=== PATIENT | male | born 1955 | race Caucasian/White ===

== ENCOUNTER 2018-08-29 11:15 | Day surgery (SDC) | payer BC ==
[2018-08-28 09:22] VITALS: BMI 71.7
[2018-08-29] MEDS ORDERED: PROPOFOL 200 MG/20 ML VIAL ONE (11:52)
[2018-08-29] MEDS ORDERED: Lidocaine 1% PF 5 ML VIAL ONE (11:52)
--- NOTE | 2018-08-29 14:09 | OP ---
DATE OF PROCEDURE: 08/29/2018 PROCEDURE PERFORMED: Colonoscopy with polypectomy and control of hemorrhage. INDICATION FOR PROCEDURE: Positive fecal occult blood test, history of colonic polyps, family histor y of colon cancer (father diagnosed at the age of 63). DESCRIPTION OF PROCEDURE: After the risks and benefits of the procedure were explained to the patien t including risks of bleeding, infection, perforation, reactions to anesthesia, aspiration and/or phillip n, informed consent was obtained. The patient was then taken to the endoscopy suite where deep sedat ion was administered via propofol and anesthesia support. Once adequate sedation was achieved, a dig ital rectal examination was performed and then followed by introducing the standard colonoscope into the rectum and advancing to the cecum with only some difficulty due to colonic redundancy. The quali ty of the prep was good. The patient tolerated the procedure well with no immediate perioperative co mplications. After the procedure, the patient was then taken to day stay in satisfactory condition. FINDINGS: Digital rectal exam normal. COLON FINDINGS: Normal appearing mucosa was seen at the appendiceal orifice as well as the ileocecal valve and the cecum. Three colonic polyps measuring 4-12 mm in size were seen in the ascending colo n and completely removed with hot snare polypectomy. They were retrieved and placed in a specimen ja r for evaluation. The largest polyp (12 mm) exhibited mild active oozing of blood afterwards that di d not immediately stopped within 2 minutes upon direct visualization. A Hemoclip x1 was then used to approximate the mucosal defect with good hemostasis achieved. 4-5 mm polyp was seen in the transver se colon and completely removed with snare cautery polypectomy. It was retrieved in a specimen jar f or evaluation. A 3-4 mm polyp was also seen in the descending colon and completely removed with snar e cautery polypectomy. It was retrieved and placed in a specimen jar for evaluation. Innumerable sm all to medium sized diverticula were seen in the distal descending and sigmoid colons without any kalin rounding erythema or ulceration. Normal appearing mucosa was seen in the rectum. Small internal hem orrhoids were seen on rectal retroflexion. IMPRESSION: 1. Three polyps measuring 5-12 mm in size were seen in the ascending colon and completely removed wi th snare cautery polypectomy. The largest polyp did display active oozing of blood afterwards that w as amenable to Hemoclip x1 with good hemostasis achieved. 2. A 5-6 mm polyp in the transverse colon completely removed with hot snare polypectomy. 3. A 3-4 mm polyp in the descending colon completely removed with snare cautery polypectomy. 4. Moderate sigmoid and descending diverticulosis. 5. Small internal hemorrhoids. RECOMMENDATIONS: 1. We will follow up on the biopsy results with repeat colonoscopy interval depending on pathology r esults. 2. We would monitor for signs of active gastrointestinal bleeding over the next 24 hours given the b leeding from the largest polyp in the ascending colon that required Hemoclip placement. 3. We would place the patient on a higher fiber diet given the presence of diverticulosis and hemorr hoids. 4. Follow up in the GI clinic as needed.
== END 2018-08-29 14:50 | disposition home or self-care (01) ==
LOC: SDC 11:15
PROVIDERS: ATTEND Internal Medicine
PROC: 0DBK8ZX Excision of Ascending Colon, Via Natural or Artificial Opening Endoscopic, Diagnostic (ICD-10-PCS; principal; 2018-08-29)
PROC: 0DBM8ZX Excision of Descending Colon, Via Natural or Artificial Opening Endoscopic, Diagnostic (ICD-10-PCS; principal; 2018-08-29)
PROC: 0DBL8ZX Excision of Transverse Colon, Via Natural or Artificial Opening Endoscopic, Diagnostic (ICD-10-PCS; principal; 2018-08-29)
DX: K57.31 Diverticulosis of large intestine without perforation or abscess with bleeding (principal); D12.2 Benign neoplasm of ascending colon; D12.3 Benign neoplasm of transverse colon; K63.5 Polyp of colon; K64.8 Other hemorrhoids; K59.00 Constipation, unspecified; G89.29 Other chronic pain; D64.9 Anemia, unspecified; M25.569 Pain in unspecified knee; E78.00 Pure hypercholesterolemia, unspecified; I10 Essential (primary) hypertension; G47.30 Sleep apnea, unspecified; F32.9 Major depressive disorder, single episode, unspecified; M19.90 Unspecified osteoarthritis, unspecified site; F41.9 Anxiety disorder, unspecified; F10.11 Alcohol abuse, in remission; F99 Mental disorder, not otherwise specified; Z86.010 Personal history of colon polyps; Z80.0 Family history of malignant neoplasm of digestive organs; Z79.891 Long term (current) use of opiate analgesic; Z79.899 Other long term (current) drug therapy
CPT/HCPCS: 88305; J2001; J2704